=== PATIENT | female | born 1970 | race Caucasian/White ===

== ENCOUNTER 2020-09-13 17:25 | Outpatient (CLI) | payer BC, SELFPAY | END 2020-09-13 17:26 | disposition home or self-care (01) | LOC: ANHCOVIDVC 17:25 | PROVIDERS: PCP Obstetrics & Gynecology | DX: Z23 Encounter for immunization (principal) | CPT/HCPCS: 0001A; 91300 ==

== ENCOUNTER 2020-10-04 17:25 | Outpatient (CLI) | payer BC, SELFPAY | END 2020-10-04 17:26 | disposition home or self-care (01) | LOC: ANHCOVIDVC 17:25 | PROVIDERS: PCP Obstetrics & Gynecology | DX: Z23 Encounter for immunization (principal) | CPT/HCPCS: 0002A; 91300 ==